=== PATIENT | male | born 1945 | race Caucasian/White ===

== ENCOUNTER → 2020-10-25 13:53 | Outpatient (BNVA) | payer MEDICARE, OTHER, SELFPAY | PROVIDERS: PCP Internal Medicine; Visit Provider Urology | DX: N40.1 Benign prostatic hyperplasia with lower urinary tract symptoms (principal); N13.8 Other obstructive and reflux uropathy; R33.9 Retention of urine, unspecified; C61 Malignant neoplasm of prostate | CPT/HCPCS: 99202 ==

== ENCOUNTER 2020-12-05 08:35 | Outpatient (REF) | payer MEDICARE, OTHER, SELFPAY ==
--- NOTE | ~2020-12-05 | XR_ITS ---
EXAMINATION: XR LEFT SHOULDER, LUMBAR SPINE AND LEFT HIP CLINICAL INFORMATION: Pain. COMPARISON: None. TECHNIQUE: Lumbar spine 5 views. Left hip 2 views. Left shoulder 4 views. FINDINGS: Left shoulder: There is loss of glenohumeral joint space. There is mild hypertrophic changes left AC joint. No acute fracture, dislocation or lytic process seen. The soft tissues are normal. Lumbar spine: There is normal lumbar lordosis. The vertebral heights and alignment are normal. Mild loss of L5-S1 disc level is noted. There is moderate ventral spondylosis. No acute fracture or lytic process seen. On oblique views, there is no pars defect or listhesis. The paravertebral soft tissues are normal. Left hip: The left hip joint space is maintained normal. There is no visible acute fracture, dislocation or bony erosive changes. The soft tissues are normal. XR/XR lumbar spine 4V min IMPRESSION: Mild degenerative changes left AC joint. No visible acute fracture or dislocation left shoulder Mild ventral spondylosis lumbar spine with degenerative disc changes L5-S1 disc levels. No visible acute fracture, dislocation or subluxation seen. There is no acute fracture or dislocation left hip joint. No bony erosive changes. The soft tissues are normal.
--- NOTE | ~2020-12-05 | XR_ITS ---
EXAMINATION: XR LEFT SHOULDER, LUMBAR SPINE AND LEFT HIP CLINICAL INFORMATION: Pain. COMPARISON: None. TECHNIQUE: Lumbar spine 5 views. Left hip 2 views. Left shoulder 4 views. FINDINGS: Left shoulder: There is loss of glenohumeral joint space. There is mild hypertrophic changes left AC joint. No acute fracture, dislocation or lytic process seen. The soft tissues are normal. Lumbar spine: There is normal lumbar lordosis. The vertebral heights and alignment are normal. Mild loss of L5-S1 disc level is noted. There is moderate ventral spondylosis. No acute fracture or lytic process seen. On oblique views, there is no pars defect or listhesis. The paravertebral soft tissues are normal. Left hip: The left hip joint space is maintained normal. There is no visible acute fracture, dislocation or bony erosive changes. The soft tissues are normal. XR/XR hip LT min 2V IMPRESSION: Mild degenerative changes left AC joint. No visible acute fracture or dislocation left shoulder Mild ventral spondylosis lumbar spine with degenerative disc changes L5-S1 disc levels. No visible acute fracture, dislocation or subluxation seen. There is no acute fracture or dislocation left hip joint. No bony erosive changes. The soft tissues are normal.
--- NOTE | ~2020-12-05 | XR_ITS ---
EXAMINATION: XR LEFT SHOULDER, LUMBAR SPINE AND LEFT HIP CLINICAL INFORMATION: Pain. COMPARISON: None. TECHNIQUE: Lumbar spine 5 views. Left hip 2 views. Left shoulder 4 views. FINDINGS: Left shoulder: There is loss of glenohumeral joint space. There is mild hypertrophic changes left AC joint. No acute fracture, dislocation or lytic process seen. The soft tissues are normal. Lumbar spine: There is normal lumbar lordosis. The vertebral heights and alignment are normal. Mild loss of L5-S1 disc level is noted. There is moderate ventral spondylosis. No acute fracture or lytic process seen. On oblique views, there is no pars defect or listhesis. The paravertebral soft tissues are normal. Left hip: The left hip joint space is maintained normal. There is no visible acute fracture, dislocation or bony erosive changes. The soft tissues are normal. XR/XR shoulder LT min 2V IMPRESSION: Mild degenerative changes left AC joint. No visible acute fracture or dislocation left shoulder Mild ventral spondylosis lumbar spine with degenerative disc changes L5-S1 disc levels. No visible acute fracture, dislocation or subluxation seen. There is no acute fracture or dislocation left hip joint. No bony erosive changes. The soft tissues are normal.
== END 2020-12-05 08:36 | disposition home or self-care (01) ==
LOC: HO.XRAY 08:35
PROVIDERS: PCP Internal Medicine; Visit Provider Internal Medicine
DX: M25.512 Pain in left shoulder (principal); M25.552 Pain in left hip; W19.XXXA Unspecified fall, initial encounter
CPT/HCPCS: 72110; 73030; 73502

== ENCOUNTER → 2021-02-23 12:58 | Outpatient (BNVA) | payer MEDICARE, OTHER, SELFPAY | PROVIDERS: PCP Internal Medicine; Visit Provider Urology | DX: Z13.89 Encounter for screening for other disorder (principal) | CPT/HCPCS: Q3014 ==

== ENCOUNTER 2021-06-08 07:48 | Outpatient (REF) | payer MEDICARE, MEDICAID, SELFPAY ==
[2021-06-08 09:56] LABS: Prostate Specific Antigen 8.32 ng/mL (<0.05-4.0)
== END 2021-06-08 07:49 | disposition home or self-care (01) ==
LOC: HO.LAB 07:48
PROVIDERS: PCP Internal Medicine; Visit Provider Urology
DX: Z12.5 Encounter for screening for malignant neoplasm of prostate (principal); C61 Malignant neoplasm of prostate
CPT/HCPCS: 36415; 84153

== ENCOUNTER → 2021-06-21 11:15 | Outpatient (BNVA) | payer MEDICARE, MEDICAID, SELFPAY | PROVIDERS: PCP Internal Medicine; Visit Provider Urology | DX: Z13.89 Encounter for screening for other disorder (principal) | CPT/HCPCS: Q3014 ==

== ENCOUNTER → 2021-07-19 08:27 | Outpatient (BNVA) | payer MEDICARE, MEDICAID, SELFPAY | PROVIDERS: PCP Internal Medicine; Visit Provider Urology | DX: Z13.89 Encounter for screening for other disorder (principal) | CPT/HCPCS: Q3014 ==

== ENCOUNTER 2021-11-07 09:59 | Outpatient (REF) | payer MEDICARE, MEDICAID, SELFPAY ==
[2021-11-07 11:20] LABS: Blood Urea Nitrogen 12 mg/dL (9-16); Estimated Glomerular Filt Rate > 60
[2021-11-07 11:50] LABS: PSA,Total (Free>4and<10) 8.44 ng/mL (0.00-4.00)
[2021-11-08 13:32] LABS: Free Prostate Spec Ag 0.7 ng/mL; Percent Free Prostate Spec Ag 7 % (calc) (>25); Prostate Specific Ag Total 9.7 ng/mL (< OR = 4.0)
== END 2021-11-07 10:00 | disposition home or self-care (01) ==
LOC: HO.LAB 09:59
PROVIDERS: PCP Internal Medicine; Visit Provider Urology
DX: Z12.5 Encounter for screening for malignant neoplasm of prostate (principal); C61 Malignant neoplasm of prostate; R39.15 Urgency of urination
CPT/HCPCS: 36415; 82565; 84153; 84154; 84520

== ENCOUNTER → 2021-11-19 09:58 | Outpatient (BNVA) | payer MEDICARE, MEDICAID, SELFPAY | PROVIDERS: PCP Internal Medicine; Visit Provider Internal Medicine | DX: Z86.010 Personal history of colon polyps (principal) | CPT/HCPCS: 99202 ==

== ENCOUNTER → 2021-11-20 10:30 | Outpatient (BNVA) | payer MEDICARE, MEDICAID, SELFPAY | PROVIDERS: PCP Internal Medicine; Visit Provider Urology | DX: R97.20 Elevated prostate specific antigen [PSA] (principal); C61 Malignant neoplasm of prostate; N40.1 Benign prostatic hyperplasia with lower urinary tract symptoms; N13.8 Other obstructive and reflux uropathy; Z79.899 Other long term (current) drug therapy | CPT/HCPCS: Q3014 ==

== ENCOUNTER 2021-12-20 07:16 | Outpatient (REF) | payer MEDICARE, MEDICAID, SELFPAY ==
[2021-12-20 07:42] VITALS: BMI 28.1
[2021-12-20 07:43] VITALS: BP 150/90; PULSE 74; RESP 16; TEMP 36.9; O2SAT 97
--- NOTE | 2021-12-20 08:35 | W.PM.OPN ---
Operative Note Operative Note Date of Service: 12/20/21 Narrative: Preoperative diagnosis: Prostate Cancer Postoperative diagnosis: Prostate Cancer Procedure: 1. transrectal ultrasound measurement of prostate 2. transrectal ultrasound-guided pudendal nerve block 3. transrectal ultrasound-guided prostate biopsy 12 core Surgeon: Dr. Andrea Cordoba Anesthetic: Local Indications for procedure: Prostate Cancer Procedure: After informed consent was verified, the patient was brought into the procedure area and lay left-hand side down on the table. Patient identity confirmed. Perioperative antibiotics confirmed. Safety pause time out performed. DARWIN performed to dilate rectal sphincter Iodine 10cc with Gel was placed per rectum Ultrasound probe was placed per rectum The prostate was measured in 3 dimensions Total volume equals 30 gm No cystic structures were noted calcifications were noted at the surgical margin The prostate was otherwise homogeneous in nature An ultrasound-guided pudendal nerve block was performed using 10 cc of 1% lidocaine. 8 cc was placed at the base and 2 cc of the apex. A 12 core biopsy was performed with 6 cores each side. Two cores were taken at the apex, mid and base. Cores were spaced between lateral and medial. He tolerated the procedure well. Was able to ambulate to bathroom after 5 minutes. Printed instructions regarding antibiotic use and common side effects such as low-grade temperature, potential infection and bleeding were given Pathology: 12 core prostate biopsy.
[2021-12-20 08:45] VITALS: BP 155/91; PULSE 71; RESP 16; O2SAT 98
== END 2021-12-20 07:17 | disposition home or self-care (01) ==
LOC: HO.MS 07:16
PROVIDERS: PCP Internal Medicine; Visit Provider Urology
PROC: (CPT 55700; principal; 2021-12-20 08:00)
DX: C61 Malignant neoplasm of prostate (principal)
CPT/HCPCS: 55700; 76942; 88305; 88344

== ENCOUNTER → 2021-12-28 09:58 | Outpatient (BNVA) | payer MEDICARE, MEDICAID, SELFPAY | PROVIDERS: PCP Internal Medicine; Visit Provider Urology | DX: C61 Malignant neoplasm of prostate (principal); N40.1 Benign prostatic hyperplasia with lower urinary tract symptoms; N13.8 Other obstructive and reflux uropathy | CPT/HCPCS: Q3014 ==

== ENCOUNTER 2022-01-08 12:19 | Day surgery (SDC) | payer MEDICARE, MEDICAID, SELFPAY ==
--- NOTE | 2022-01-07 10:56 | HO.ANESPROP2 ---
Documented by User: Dyan Carter NP 01/07/22 10:58 HPI - Anesthesia Eval Consult details Narrative: 76yo M for Colonoscopy PMFSH Active Problems Active Problems: All Active Problems (Updated 12/28/21 @ 11:12 by Andrea Cordoba MD) Personal history of colonic polyps (Acute) Incomplete emptying of bladder due to benign prostatic hyperplasia (Acute) Prostate cancer (Acute) BPH w urinary obs/LUTS (Acute) Past Medical History Medical History (Updated 01/08/22 @ 13:38 by Gregorio Astudillo MD) Anxiety High cholesterol History of adenomatous polyp of colon Hypercholesteremia Multiple polyps of sigmoid colon OA (osteoarthritis) Surgical History Surgical History History of colonoscopy History of nephrectomy Social History Social History Alcohol intake: current Patient Tobacco Use Status: Never used Tobacco Are you DNR?: No Advance Directives: No Advance Directives Information Provided: Yes Nutrition Risks: No Nutritional Risk Meds Allergies Allergy/AdvReac Type Severity Reaction Status Date / Time No Known Allergies Allergy Verified 01/08/22 12:50 Home Medications Medication Instructions Recorded Confirmed Last Taken Type atorvastatin 20 mg tablet 20 mg PO DAILY 10/25/20 01/08/22 Unknown History clonazepam 1 mg tablet 1 mg PO BEDTIME 10/25/20 01/08/22 Unknown History omeprazole 20 mg capsule,delayed 20 mg PO DAILY 10/25/20 01/08/22 Unknown History release polyvinyl alcohol 1.4 % eye drops 1 drp ophthalmic (eye) TID 10/25/20 01/08/22 Unknown History (Artificial Tears (polyvinyl alcohol)) amlodipine 5 mg tablet 5 mg PO QAM 07/19/21 01/08/22 01/08/22 History losartan 50 mg tablet 50 mg PO QAM 07/19/21 01/08/22 01/08/22 History sertraline 25 mg tablet 25 mg PO DAILY 07/19/21 01/08/22 Unknown History trazodone 50 mg tablet 50 mg PO BEDTIME 07/19/21 01/08/22 Unknown History Exam Exam Date and Time: January 07, 2022 1056 Pertinent Lab Results Pertinent Lab Results: Laboratory Tests 11/07/21 10:10 BUN 12 Creatinine 1.14 Assessment and Plan Assessment Anesthesia Assessment: Chart Reviewed Documented by User: Gregorio Astudillo MD 01/08/22 13:43 PMF Past Medical History Medical History (Updated 01/08/22 @ 13:38 by Gregorio Astudillo MD) Anxiety High cholesterol History of adenomatous polyp of colon Hypercholesteremia Multiple polyps of sigmoid colon OA (osteoarthritis) Family History Family history of problems with anesthesia: No Surgical History Surgical History History of colonoscopy History of nephrectomy History of Problems with Anesthesia: No Social History Social History Alcohol intake: current Patient Tobacco Use Status: Never used Tobacco Are you DNR?: No Advance Directives: No Advance Directives Information Provided: Yes Nutrition Risks: No Nutritional Risk Meds Allergies Allergy/AdvReac Type Severity Reaction Status Date / Time No Known Allergies Allergy Verified 01/08/22 12:50 Home Medications Medication Instructions Recorded Confirmed Last Taken Type atorvastatin 20 mg tablet 20 mg PO DAILY 10/25/20 01/08/22 Unknown History clonazepam 1 mg tablet 1 mg PO BEDTIME 10/25/20 01/08/22 Unknown History omeprazole 20 mg capsule,delayed 20 mg PO DAILY 10/25/20 01/08/22 Unknown History release polyvinyl alcohol 1.4 % eye drops 1 drp ophthalmic (eye) TID 10/25/20 01/08/22 Unknown History (Artificial Tears (polyvinyl alcohol)) amlodipine 5 mg tablet 5 mg PO QAM 07/19/21 01/08/22 01/08/22 History losartan 50 mg tablet 50 mg PO QAM 07/19/21 01/08/22 01/08/22 History sertraline 25 mg tablet 25 mg PO DAILY 07/19/21 01/08/22 Unknown History trazodone 50 mg tablet 50 mg PO BEDTIME 07/19/21 01/08/22 Unknown History Exam Airway Mallampati Class: II TM Dist: >3cm Neck ROM: Full Denture: Upper and Lower Heart: rrr Lungs: clear Assessment and Plan Final Anesthetic Review Family History of Problems with Anesthesia: No History of Problems with Anesthesia: No NPO: Yes ASA Class: II Final Preanesthetic Review: No Changes in Pt Med Stat, Meds/Allgs Chart Reviewed, Consent Obtained/Reviewed and Anes Risks/Benef Reviewed Patient Risk: Intermediate Procedure Risk: Low Anesthetic Plan Anesthetic Plan: MAC: Disposition: Standard PACU
[2022-01-08] MEDS: Lactated Ringers 1,000 ML 100 ML IVCONT (13:09)
[2022-01-08 13:16] VITALS: BMI 29.2
[2022-01-08 13:23] VITALS: BP 168/86; PULSE 72; RESP 18; TEMP 36.6; O2SAT 99
--- NOTE | 2022-01-08 13:43 | P.HPSUR_ITS ---
Pre-Procedural Eval Section A Date of Service: 01/08/22 Section B Chief Complaint: Personal history of colonic polyps Details of Present Illness: This 76-year-old gentleman with past medical history of hypertension, hyperlipidemia, osteoarthritis, history of nephrectomy, who p resents for surveillance colo. Most recent colonoscopy was in October 2017 (Dr. Hughes)-good prep to the cecum. He was found to have 2 polyps in cecum including 1cm polyp; and 4 polyps in transverse colon. Path: tubular adenomas + hyperplastic polyps. Present Medications: see Short Stay Collaborative assessment Allergies: Allergies Allergy/AdvReac Type Severity Reaction Status Date / Time No Known Allergies Allergy Verified 01/08/22 12:50 Review of Systems Review of Systems Comment: 10 point ROS negative except as above Exam Exam Comment: Gen appear: No acute distress, well nourished HEENT: no icterus Chest: No overt resp distress Abd: soft, nontender, nondistended Psych: Stable affect, answering questions appropriately Neuro: A/Ox3 noted to move all extremities spontaneously Ext: no peripheral edema Plan I have reviewed the history and physical and performed a pertinent physical examination on my patient. No changes have occurred unless specified.
--- NOTE | 2022-01-08 14:01 | W.PM.OPN ---
Operative Note Operative Note Date of Service: 01/08/22 Narrative: Procedure: Colonoscopy Indication: Personal history of polyps Endoscopist: Jo Murray MD Anesthesia Provider: Dr Astudillo Anesthesia type: MAC Instrument: Olympus [id number]-H190L Consent: Indication, risks vs benefits, and alternatives were discussed with the patient who gave written informed consent to proceed. An supervisor offset plate preparation was utilized to assist with the consent. EKG, pulse, pulse oximetry and blood pressure were monitored throughout the procedure. Please see anesthesia flowsheet. Procedure: The patient was brought to the procedure room and placed in the left lateral decubitus position. IV medications were administered by the anesthesia provider in attendance. A digital rectal exam was performed which was normal abnormal due to finding of hemorrhoids. The colonoscope was then inserted through the anus and advanced through the colon to the cecum at 80 cm. Mucosa was carefully examined under high definition white light as the instrument was slowly withdrawn in a retrograde panoramic fashion. Retroflexion was performed in ascending colon and rectum. The procedure was not difficult. There were no immediate obvious complications. The quality of the prep was BBPS: 2+3+2 = adequate Withdrawal time 20 minutes. Limitations: No limitations. Findings: Mucosa: Normal to cecum. Protruding lesions: 1 sessile polyp of size 2 mm in ascending colon. Cold snare polypectomy was performed. The polyp was completely removed and retrieved. Large internal hemorrhoids with stigmata of recent bleeding. Excavated lesions: Severe diverticulosis of sigmoid colon. Impression: 1. Normal colon mucosa 2. Total of 1 polyps removed from ascending colon. 3. Diverticulosis 3. Internal hemorrhoids Recommendations: - Follow path results. - Repeat colonoscopy in 5 years if still in good health, due to hx of advanced polyp.
[2022-01-08 14:41] VITALS: BP 132/79; PULSE 73; RESP 22; TEMP 36.6; O2SAT 97
[2022-01-08 14:56] VITALS: BP 147/84; PULSE 68; RESP 20; TEMP 36.8; O2SAT 98
== END 2022-01-08 15:32 | disposition home or self-care (01) ==
PROVIDERS: PCP Internal Medicine; Visit Provider Internal Medicine
PROC: 0DJD8ZZ Inspection of Lower Intestinal Tract, Via Natural or Artificial Opening Endoscopic (ICD-10-PCS; CPT 45378; principal; 2022-01-08 13:50)
DX: Z12.11 Encounter for screening for malignant neoplasm of colon (principal); K63.5 Polyp of colon; K57.30 Diverticulosis of large intestine without perforation or abscess without bleeding; K64.8 Other hemorrhoids; Z86.010 Personal history of colon polyps; I10 Essential (primary) hypertension; E78.5 Hyperlipidemia, unspecified; Z79.899 Other long term (current) drug therapy
CPT/HCPCS: 45385; 88305

== ENCOUNTER → 2022-01-22 09:43 | Outpatient (BNVA) | payer MEDICARE, MEDICAID, SELFPAY | PROVIDERS: PCP Internal Medicine; Visit Provider Internal Medicine | DX: K57.30 Diverticulosis of large intestine without perforation or abscess without bleeding (principal); K64.8 Other hemorrhoids; Z86.010 Personal history of colon polyps; Z98.890 Other specified postprocedural states | CPT/HCPCS: 99212 ==